=== PATIENT | male | born 1990 ===

== ENCOUNTER → 2025-04-18 | Outpatient (CLI) | payer BC, SELFPAY ==
[2025-04-18 09:51] LABS: % Variance 8 %; Count Side 1 22; Count Side 2 24; Sperm Count 23 Million (20-50)
[2025-04-18 09:54] LABS: % Variance Motility 17 %; Motl CLS 1 60; Motl CLS 2 50; Room Temperature 23 (20-27C (Area)); Sperm Motility 55 % (>=50)
== END | disposition home or self-care (01) ==
PROVIDERS: Referring Provider Specialist; Visit Provider Specialist
DX: N46.9 Male infertility, unspecified (principal)
CPT/HCPCS: 89310